=== PATIENT | female | born 2000 | race Caucasian/White ===

== ENCOUNTER 2018-09-10 18:58 | Emergency (ER) | payer MEDICAID ==
[~2018-09-10] VITALS: Ht 152.4 cm; Wt 56.2 kg
[2018-09-10 19:09] VITALS: Ht 152.4 cm; Wt 56.2 kg
[2018-09-10 20:36] LABS: BASOPHIL % 0.2 % (0-2); PLATELET COUNT 295 x10^3mcL (130-400); RED CELL DISTRIBUTION WIDTH 12.7 % (11.5-14.5)
[2018-09-10 20:46] LABS: CARBON DIOXIDE 25.9 mmol/L (21-32); CHLORIDE SERUM 104 mmol/L (98-107); CREATININE SERUM 0.7 mg/dL (0.6-1.0); GFR1 > 60 mL/min; GLUCOSE SERUM 81 mg/dL (74-106); POTASSIUM SERUM 3.4 mmol/L (3.5-5.1); SODIUM SERUM 137 mmol/L (136-145)
[2018-09-10 20:51] LABS: ALBUMIN 3.7 g/dL (3.4-5.0); ALKALINE PHOSPHATASE 72 U/L (46-116); ALT/SGPT 14 U/L (14-59); AST/SGOT 11 U/L (15-37); BILIRUBIN TOTAL 0.2 mg/dL (0.20-1.00); TOTAL PROTEIN, SERUM 7.2 g/dL (6.4-8.2)
[2018-09-10 23:53] VITALS: BP 109/76
== END 2018-09-10 23:53 | disposition home or self-care (01) ==
LOC: ED 18:58
PROVIDERS: Emergency Medicine
DX: N83.201 Unspecified ovarian cyst, right side (principal); D72.829 Elevated white blood cell count, unspecified; R10.31 Right lower quadrant pain
CPT/HCPCS: J1885; Q9967